=== PATIENT | male | born 1980 | race Caucasian/White ===

== ENCOUNTER 2018-08-25 17:34 | Emergency (ER) | payer SELFPAY ==
[2018-08-25 18:40] VITALS: BP 147/89
--- NOTE | 2018-08-25 19:03 | UC ---
Complaint Male HPI - HPI Summary HPI Summary: 38 y/o male presents to the urgent care c/o burning and frequency on urination for the past 2 days. Pt reports she had unprotected sex about 1 week ago and he is concern about STD's. He requests screening for GC/chlamydia and Trichomonas. Pt deneis penile discharge or rash. Pain w/ urination is 3/10. He has been drinking fluids, but has not taken any medication to alleviate symptoms. Pt denies Hx of STD's, fever, lower back pain, flank pain, pelvic pain , abdominal pain, blood in the urine, SOB, chest pain, ZHANG, dizziness. - History of Current Complaint Chief Complaint: UCGU Stated Complaint: PERSONAL Time Seen by Provider: 08/25/18 19:02 Hx Obtained From: Patient Onset/Duration: Gradual Onset, Lasting Days - 2 days, Still Present Timing: Intermittent, Lasting Seconds Severity Initially: Mild Severity Currently: Mild Pain Intensity: 3 Pain Scale Used: 0-10 Numeric Location: Penis Character: Burning Aggravating Factor(s): Voiding Alleviating Factor(s): Nothing Associated Signs And Symptoms: Positive: Dysuria. Negative: Back Pain, Fever, Hematuria, Blood in Stool, Rectal Pain, Nausea, Vomiting(# Of Episodes =), Penile Swelling, Penile Discharge - Risk Factors Testicular Torsion: Negative - Allergies/Home Medications Allergies/Adverse Reactions: Allergies Allergy/AdvReac Type Severity Reaction Status Date / Time No Known Allergies Allergy Verified 08/25/18 18:33 Home Medications: Home Medications Glucosamine/MSM/Chondroitin A [Glucosamine Chondroit MSM Tab] 1 tab PO 08/25/18 [History] Multivitamin [Multivitamins] 1 cap PO DAILY 08/25/18 [History Confirmed 08/25/18 ] PMH/Surg Hx/FS Hx/Imm Hx Previously Healthy: Yes Cardiovascular History: Hypertension - diet controlled - Surgical History Surgical History: Yes Surgery Procedure, Year, and Place: gyno surg. knee/left x2. right ankle - Family History Known Family History: Positive: Cardiac Disease, Hypertension, Diabetes - Social History Occupation: Employed Full-time Lives: With Family Alcohol Use: Occasionally Substance Use Type: None Smoking Status (MU): Never Smoked Tobacco Review of Systems All Other Systems Reviewed And Are Negative: Yes Constitutional: Positive: Negative Skin: Positive: Negative Eyes: Positive: Negative ENT: Positive: Negative Respiratory: Positive: Negative Cardiovascular: Positive: Negative Gastrointestinal: Positive: Negative Genitourinary: Positive: Dysuria, Frequency, Urgency Motor: Positive: Negative Neurovascular: Positive: Negative Musculoskeletal: Positive: Negative Neurological: Positive: Negative Psychological: Positive: Negative Is Patient Immunocompromised?: No Physical Exam - Summary Physical Exam Summary: VITAL SIGNS: Reviewed. GENERAL: Patient is a well developed and nourished male who is sitting comfortable in the examining table. Patient is not in any acute respiratory distress. HEAD AND FACE: No signs of trauma. No ecchymosis, hematomas or skull depressions. No sinus tenderness. EYES: PERRLA, EOMI x 2, No injected conjunctiva, clear watery eyes, no nystagmus. No photophobia. EARS: Hearing grossly intact. Ear canals and tympanic membranes are within normal limits. MOUTH: pharynx with no erythema, no exudates,no palatal petechiae. no B/L tonsillar enlargement Uvula in midline. NECK: Supple, trachea is midline, no lymphadenopathy, no JVD, no carotid bruit, no c-spine tenderness, neck with full ROM. CHEST: Symmetric, no tenderness at palpation LUNGS: Clear to auscultation bilaterally. No wheezing or crackles. CVS: Regular rate and rhythm, S1 and S2 present, no murmurs or gallops appreciated. ABDOMEN: Soft, non-tender. No signs of distention. No rebound no guarding, and no masses palpated. Bowel sounds are normal. : Pt declined examination BACK:no scoliosis or lesions, non tender to palpation, No B/L CVA tenderness EXTREMITIES: FROM in all major joints, no edema, no cyanosis or clubbing. NEURO: Alert and oriented x 3. No acute neurological deficits. Speech is normal and follows commands. SKIN: Dry and warm Triage Information Reviewed: Yes Vital Signs: Initial Vital Signs Temp 98.6 F 08/25/18 18:35 Pulse 79 08/25/18 18:35 Resp 18 08/25/18 18:35 BP 147/89 08/25/18 18:35 Pulse Ox 98 08/25/18 18:35 Complaint Male Course/Dx - Course Course Of Treatment: 38 y/o male presents to the urgent care c/o burning and frequency on urination for the past 2 days. Pt reports she had unprotected sex about 1 week ago and he is concern about STD's. He requests screening for GC/chlamydia and Trichomonas. Pt deneis penile discharge or rash. Pain w/ urination is 3/10. He has been drinking fluids, but has not taken any medication to alleviate symptoms. Pt denies Hx of STD's, fever, lower back pain, flank pain, pelvic pain , abdominal pain, blood in the urine, SOB, chest pain, ZHANG, dizziness. Hx obtained. PE: WNL. Pt decline examination. UA ordered: trace of leukoesterase. Pt educational guidance counselor on STD's and GC/Ch and trichomonas ordered. Pt declined HIV testing. Urine culture also sent to lab for culture. Pt Rx Ciprofloxacin PO and Advised to increase fluid intake. Pt will be notified for further treatment. Pt advised If symptoms do not improve to return to the urgent care or f/u with PCP. Pt understood and agreed. Left the clinic ambulating. - Differential Dx/Diagnosis Differential Diagnosis/HQI/PQRI: Epididymitis, Ureteral Calculi, Urinary Tract Infection, Other - STD's Provider Diagnosis: UTI (urinary tract infection), Dysuria, Screening for STD (sexually transmitted disease), Elevated BP without diagnosis of hypertension Discharge - Sign-Out/Discharge Documenting (check all that apply): Patient Departure - D/C home All imaging exams completed and their final reports reviewed: No Studies - Discharge Plan Condition: Good Disposition: HOME Prescriptions: Ciprofloxacin TAB* [Cipro 500 MG TAB*] 500 mg PO BID #14 tab Phenazopyridine TAB* [Pyridium 100 mg TAB*] 100 mg PO TID #6 tab Patient Education Materials: Sexually Transmitted Diseases (ED), Urinary Tract Infection in Men (ED) Referrals: Albin ZUNIGA,Martin Murry [Primary Care Provider] - 3 Days Additional Instructions: 1- Please take Ciprofloxacin PO x 7 days. Pyridium 100 mg PO TID x 2 days to alleviate urinary symptoms. Increase increase fluid intake. drink cranberry juice. 2-Urine sent for culture and screening STd's for GC/Chlamydia and Trichomonas if any abnormality, you will be notified for further treatment. 3-If symptoms do not improve please return to the urgent care or f/u with your PCP for further management. 4- Your BP is elevated today. please decrease salt in your diet, monitor BP and if it continues to be elevated please f/u with your PCP for further management. - Billing Disposition and Condition Condition: GOOD Disposition: Home
== END 2018-08-25 19:30 | disposition home or self-care (01) ==
LOC: UCCORT 17:34
DX: N39.0 Urinary tract infection, site not specified (principal); Z11.3 Encounter for screening for infections with a predominantly sexual mode of transmission; R03.0 Elevated blood-pressure reading, without diagnosis of hypertension; I10 Essential (primary) hypertension
CPT/HCPCS: 81003; 87086; 87491; 87591; 99212; G0463

== ENCOUNTER 2018-09-19 15:37 | Emergency (ER) | payer SELFPAY ==
[2018-09-19 15:53] VITALS: BP 149/88
--- NOTE | 2018-09-19 16:16 | UC ---
Complaint Male HPI - HPI Summary HPI Summary: recently treated with zithromycin for chlamydia got better now symptoms have returned dysuria bilat test pain (mild) no d/c no fever or chills - History of Current Complaint Chief Complaint: UCGU Stated Complaint: URINARY COMPLAINT Time Seen by Provider: 09/19/18 15:54 Hx Obtained From: Patient Onset/Duration: Gradual Onset, Lasting Days Timing: Intermittent Severity Initially: Mild Severity Currently: None Pain Intensity: 0 Pain Scale Used: 0-10 Numeric Location: Penis Character: Burning Aggravating Factor(s): Voiding Alleviating Factor(s): Other Associated Signs And Symptoms: Positive: Dysuria. Negative: Diaphoresis, Back Pain, Fever, Hematuria, Constipation, Blood in Stool, Rectal Pain, Appetite, Nausea, Vomiting(# Of Episodes =), Penile Swelling, Penile Discharge Prior STD Hx: see HPI - Risk Factors Testicular Torsion: Negative - Allergies/Home Medications Allergies/Adverse Reactions: Allergies Allergy/AdvReac Type Severity Reaction Status Date / Time No Known Allergies Allergy Verified 09/19/18 15:53 PMH/Surg Hx/FS Hx/Imm Hx Previously Healthy: Yes - Surgical History Surgical History: Yes Surgery Procedure, Year, and Place: breast tissue removal surg. knee/left x2. right ankle. Bicep tendon repair R - Family History Known Family History: Positive: Cardiac Disease, Hypertension, Diabetes - Social History Alcohol Use: Weekly Substance Use Type: None Smoking Status (MU): Never Smoked Tobacco Review of Systems All Other Systems Reviewed And Are Negative: Yes Constitutional: Positive: Negative Skin: Positive: Negative Eyes: Positive: Negative ENT: Positive: Negative Respiratory: Positive: Negative Cardiovascular: Positive: Negative Gastrointestinal: Positive: Negative Genitourinary: Positive: Dysuria, Other - mild bilat testicular pain Motor: Positive: Negative Neurovascular: Positive: Negative Musculoskeletal: Positive: Negative Neurological: Positive: Negative Psychological: Positive: Negative Physical Exam Triage Information Reviewed: Yes Appearance: Well-Appearing, No Pain Distress, Well-Nourished Vital Signs: Initial Vital Signs Temp 99.2 F 09/19/18 15:44 Pulse 78 09/19/18 15:44 Resp 15 09/19/18 15:44 BP 149/88 09/19/18 15:44 Pulse Ox 98 09/19/18 15:44 Vital Signs Reviewed: Yes Eyes: Positive: Conjunctiva Clear ENT: Positive: Hearing grossly normal, Uvula midline. Negative: Nasal congestion, Nasal drainage, Trismus, Muffled voice, Hoarse voice Neck: Positive: Supple, Nontender, No Lymphadenopathy Respiratory: Positive: Lungs clear, Normal breath sounds, No respiratory distress, No accessory muscle use Cardiovascular: Positive: RRR, No Murmur, Pulses Normal Bowel Sounds: Positive: Present Male Genital Exam: Positive: Normal Genitalia. Negative: Normal Prostate, No Hernia, Bleeding, Epididymal Tenderness, Erythema, Hernia Mass, Inguinal Tenderness, Scrotum Tenderness (R), Scrotum Tenderness (L), Testicular Tenderness (R), Urethral Discharge Musculoskeletal: Positive: ROM Intact, No Edema Neurological: Positive: Alert Psychological Exam: Normal Skin Exam: Normal Complaint Male Course/Dx - Differential Dx/Diagnosis Provider Diagnosis: Dysuria Discharge - Sign-Out/Discharge Documenting (check all that apply): Patient Departure All imaging exams completed and their final reports reviewed: No Studies - Discharge Plan Condition: Stable Disposition: HOME Prescriptions: DOXYcycline CAP(*) [DOXYcycline 100MG CAP(*)] 100 mg PO BID #14 cap Patient Education Materials: Dysuria (ED) Referrals: Albin ZUNIGA,Martin Murry [Primary Care Provider] - 1 Week (if not better) Additional Instructions: You may have a mild case of epididymitits - Billing Disposition and Condition Condition: STABLE Disposition: Home
[2018-09-21 13:26] LABS: Neisseria gonorrhoeae (GC) RNA Negative (Negative)
== END 2018-09-19 16:23 | disposition home or self-care (01) ==
LOC: UCCORT 15:37
DX: R30.0 Dysuria (principal)
CPT/HCPCS: 87491; 87591; 99212; G0463